=== PATIENT | male | born 1990 | race Caucasian/White ===

== ENCOUNTER 2020-03-02 14:48 | Emergency (ER) | payer BC ==
[2020-03-02 14:54] VITALS: BP 152/98; PULSE 78; TEMP 99.1; BMI 57.1
--- NOTE | 2020-03-02 15:00 | PDOC ---
History of Present Illness - General Chief Complaint: Redness To Affected Area Stated Complaint: RIGHT LEG REDNESS Time Seen by Provider: 03/02/20 15:00 - History of Present Illness Initial Comments: 03/02/20 15:04 Chief complaint: Redness and swelling right calf HPI: Redness and swelling right calf since yesterday. Today had fever and chills, myalgias, malaise. Similar episode once in the past, diagnosed with cellulitis, resolved with oral antibiotics and leg elevation. Review of systems: As noted above. No URI symptoms, sore throat, cough, urinary symptoms. Complete review was otherwise noncontributory Past medical history: Morbid obesity, one episode cellulitis, otherwise negative. No diabetes, cardiac or pulmonary disease, or other recurrent infections. 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 Otherwise noncontributory Physical exam: Alert and oriented, morbidly obese, but cheerful and cooperative. No acute distress Afebrile, 99.1, remainder of vital signs normal HEENT clear Neck supple without bruit mass or nodes Chest clear CV regular without murmur rub or gallop Abdomen benign Right calf shows erythema, mild induration, from the ankle to about prison to the knee. It is nontender and there is no edema Impression: Early cellulitis Plan: Oral antibiotics, close observation. Return to the hospital for admission if no improvement 24 to 48 hours. Past History - Medical History Allergies/Adverse Reactions: Allergies Allergy/AdvReac Type Severity Reaction Status Date / Time sulfamethoxazole Allergy Verified 03/02/20 14:56 [From Bactrim] trimethoprim [From Bactrim] Allergy Verified 03/02/20 14:56 Home Medications: Ambulatory Orders Cephalexin [Keflex] 500 mg PO QID #40 capsule 03/02/20 COPD: No - Psycho-Social/Smoking History Smoking History: Never smoked Have you smoked in the past 12 months: No - Substance Abuse Hx (Audit-C & DAST Scrn) How often the patient has a drink containing alcohol: Never Score: In Men: 4 or > Positive; In Women: 3 or > Positive: 0 Screen Result (Pos requires Nsg. Audit-10AR): Negative In the last yr the pt used illegal drug/Rx for NonMed reason: No Score: Yes response is considered Positive: 0 Screen Result (Positive result requires Nsg. DAST-10): Negative *Physical Exam - Vital Signs Last Vital Signs Temp Pulse Resp BP Pulse Ox 99.1 F 78 17 152/98 99 03/02/20 14:48 03/02/20 14:48 03/02/20 14:48 03/02/20 14:48 03/02/20 14:48 Medical Decision Making - Medical Decision Making 03/02/20 15:13 Prior episode of cellulitis in June was treated with Bactrim and Keflex. Immediately discontinued the Bactrim due to a skin reaction, but seem to respond to the Keflex. Keflex prescribed 500 mg 4 times daily. Rest and elevation of the leg. Timely follow-up in 24 hours recommended Discharge - Discharge Information Problems reviewed: Yes Clinical Impression/Diagnosis: Cellulitis of right leg Condition: Stable Disposition: HOME - Admission No - Additional Discharge Information Prescriptions: Cephalexin [Keflex] 500 mg PO QID #40 capsule - Follow up/Referral Referrals: Bull Carty MD [Staff Physician] - 24 hours - Patient Discharge Instructions Patient Printed Discharge Instructions: DI for Cellulitis -- Adult Additional Instructions: Rest and elevate the leg as much as possible. Limited standing and walking. Warm compresses. Antibiotics as directed. It is recommended to have the leg rechecked in 24 hours. If worse, hospitalization may be required. You may return to the ER for recheck, or contact your primary physician or Dr. Carty, infectious disease specialist to whom you are referred - Post Discharge Activity
[2020-03-02] MEDS ORDERED: CEPHALEXIN MONOHYDRATE 500 MG CAPSULE (UD) ONE (15:25)
[2020-03-02] MEDS ORDERED: CEPHALEXIN MONOHYDRATE 500 MG CAPSULE (UD) PO ONE (15:25)
--- OUTSIDE RECORDS SUMMARY | 2020-03-02 15:41 | XMS ---
:1990 Author Organization [facility] Support Name Relationship Address Phone [facility] Unavailable [phone] [facility] [place] [address] UNK Unavailable Unavailable Unavailable LONNY SINGH MOTHER [address] [place] [address] Re-disclosure Warning The records that you are about to access may contain information from federally- assisted alcohol or drug abuse programs. If such information is present, then the following federally mandated warning applies: This information has been disclosed to you from records protected by federal confidentiality rules (42 CFR part 2). The federal rules prohibit you from making any further disclosure of this information unless further disclosure is expressly permitted by the written consent of the person to whom it pertains or as otherwise permitted by 42 CFR part 2. A general authorization for the release of medical or other information is NOT sufficient for this purpose. The Federal rules restrict any use of the information to criminally investigate or prosecute any alcohol or drug abuse patient.The records that you are about to access may contain highly sensitive health information, the redisclosure of which is protected by Article 27-F of the [facility] Public Health law. If you continue you may haveaccess to information: Regarding HIV / AIDS; Provided by facilities licensed or operated by the [facility] Office of Mental Health; or Provided by the [facility] Office for People With Developmental Disabilities. If such information is present, then the following [facility] mandated warning applies: This information has been disclosed to you from confidential records which are protected by state law. State law prohibits you from making any further disclosure of this information without the specific written consent of the person to whom it pertains, or as otherwise permitted by law. Any unauthorized further disclosure in violation of state law may result in a fine or detention sentence or both. A general authorization for the release of medical or other information is NOT sufficient authorization for further disclosure. Insurance Providers Payer name Policy type Policy ID Covered Covered green party's Policy P chastity / Coverage green party ID relationship to [employer] Inf ormation type langley BC POS [id number] SP [id number] BC PPO [id number] SP [id number] SELF PAY SP INSURANCE
== END 2020-03-02 15:32 | disposition home or self-care (01) ==
LOC: FER 14:48
DX: L03.115 Cellulitis of right lower limb (principal)
CPT/HCPCS: 99284-25

== ENCOUNTER 2023-02-08 08:40 | Inpatient (IN) | payer BC, OTHER ==
[2023-02-08 09:33] VITALS: BMI 48.7
[2023-02-08] MEDS ORDERED: VANCOMYCIN PREMIX 1.75 GM 1,750 MG/350 ML PIGGYBACK IVPB ONE (09:46)
[2023-02-08 10:07] LABS: BASO % 0.2 % (0-2.0); EOS % 0.2 % (0-4.5); HEMATOCRIT 42.1 % (35.4-49); HEMOGLOBIN 14.1 GM/dL (11.7-16.9); LYMPH % 7.1 % (8-40); MCHC 33.6 g/dl (32.0-35.9); MEAN CELL VOLUME 83.2 fl (80-96); MEAN PLT VOLUME 8.6 fl (7.5-11.1); MONO % 4.8 % (3.8-10.2); NEUT % 87.7 % (42.8-82.8); PLATELET COUNT 265 10^3/uL (134-434); RBC 5.06 M/mm3 (4.00-5.60); RDW 13.6 % (11.9-15.9); WHITE BLOOD COUNT 16.2 K/mm3 (4.0-10.0)
[2023-02-08] MEDS ORDERED: hydrALAZINE HCL 10 MG TABLET PO ONE (10:15)
[2023-02-08 10:36] LABS: CHLORIDE 97 mmol/L (98-107); POTASSIUM 3.4 mmol/L (3.5-5.1); SODIUM 135 mmol/L (136-145)
[2023-02-08 10:38] LABS: CALCIUM 8.3 mg/dL (8.5-10.1)
[2023-02-08 10:39] LABS: ALBUMIN 3.4 g/dl (3.4-5.0); ANION GAP 7 MMOL/L (8-16); BLOOD UREA NITROGEN 9.2 mg/dL (7-18); CO2 31 mmol/L (21-32); GLUCOSE,RANDOM 122 mg/dL (74-106)
[2023-02-08 10:41] LABS: CREATININE 0.9 mg/dL (0.55-1.3); SGOT/AST 26 U/L (15-37); SGPT/ALT 42 U/L (13-61)
[2023-02-08 10:43] LABS: TOT PROT 8.1 g/dl (6.4-8.2)
[2023-02-08 10:45] LABS: ALK PHOS 95 U/L (45-117)
[2023-02-08 10:46] LABS: N-TERMINAL BNP 192.4 pg/ml (5-125)
[2023-02-08 10:48] LABS: ERYTHROCYTE SEDIMENTATION RATE 69 mm/hr (0-10)
[2023-02-08 11:04] LABS: BILIRUBIN,TOTAL 1.1 mg/dL (0.2-1)
[2023-02-08] MEDS ORDERED: ENOXAPARIN NA (PORCINE) 100 MG/1 ML DISP.SYRIN SQ ONE ×2 (11:09→11:21)
[2023-02-08] MEDS: DOXYCYCLINE INJECTION 100 MG in DEXTROSE 5%-WATER 100 ML IVPB SCH ×2 (15:51→21:40)
[2023-02-08] MEDS ORDERED: ACETAMINOPHEN 1000 MG/100 ML BAG IVPB PRN (22:28)
[2023-02-08] MEDS ORDERED: ENOXAPARIN NA (PORCINE) 40 MG/0.4 ML DISP.SYRIN SQ SCH (22:30)
[2023-02-09 07:42] VITALS: RESP 18
[2023-02-09 08:18] LABS: BASO % 0.3 % (0-2.0); EOS % 1.3 % (0-4.5); HEMATOCRIT 37.7 % (35.4-49); HEMOGLOBIN 13.4 GM/dL (11.7-16.9); LYMPH % 11.4 % (8-40); MCH 29.2 pg (25.7-33.7); MCHC 35.5 g/dl (32.0-35.9); MEAN CELL VOLUME 82.3 fl (80-96); MEAN PLT VOLUME 8.3 fl (7.5-11.1); MONO % 6.7 % (3.8-10.2); NEUT % 80.3 % (42.8-82.8); PLATELET COUNT 252 10^3/uL (134-434); RBC 4.58 M/mm3 (4.00-5.60); RDW 13.5 % (11.9-15.9); WHITE BLOOD COUNT 8.9 K/mm3 (4.0-10.0)
[2023-02-09 08:29] LABS: POTASSIUM 3.4 mmol/L (3.5-5.1)
[2023-02-09 08:45] LABS: ALBUMIN 3.1 g/dl (3.4-5.0); BLOOD UREA NITROGEN 11.4 mg/dL (7-18); CALCIUM 8.3 mg/dL (8.5-10.1); MAGNESIUM 2.3 mg/dL (1.8-2.4)
[2023-02-09 08:47] LABS: PHOSPHOROUS 2.2 mg/dL (2.5-4.9)
[2023-02-09 08:49] LABS: CREATININE 0.7 mg/dL (0.55-1.3); TOT PROT 7.5 g/dl (6.4-8.2)
[2023-02-09 08:50] LABS: BILIRUBIN,TOTAL 0.7 mg/dL (0.2-1)
[2023-02-09] MEDS: ENOXAPARIN NA (PORCINE) 40 MG/0.4 ML DISP.SYRIN SQ SCH ×2 (09:27→21:43)
[2023-02-09] MEDS: amLODIPine BESYLATE 10 MG TABLET (FP) PO SCH (09:28)
[2023-02-09] MEDS: DOXYCYCLINE INJECTION 100 MG in DEXTROSE 5%-WATER 100 ML IVPB SCH ×2 (09:28→21:43)
[2023-02-09] MEDS ORDERED: ENOXAPARIN NA (PORCINE) 40 MG/0.4 ML DISP.SYRIN SQ SCH (10:00)
[2023-02-09] MEDS ORDERED: amLODIPine BESYLATE 5 MG TABLET (FP) PO SCH (10:00)
[2023-02-09] MEDS ORDERED: POTASSIUM CHLORIDE ORAL LIQUID 20 MEQ/15 ML PO ONE (11:30)
[2023-02-09] MEDS: BACITRACIN ZINC 15 GM TUBE TOPICAL OINTMENT TP SCH (12:17)
[2023-02-10] MEDS: DOXYCYCLINE INJECTION 100 MG in DEXTROSE 5%-WATER 100 ML IVPB SCH (10:03)
[2023-02-10] MEDS: amLODIPine BESYLATE 10 MG TABLET (FP) PO SCH (10:05)
[2023-02-10] MEDS: ENOXAPARIN NA (PORCINE) 40 MG/0.4 ML DISP.SYRIN SQ SCH (10:05)
[2023-02-10] MEDS: BACITRACIN ZINC 15 GM TUBE TOPICAL OINTMENT TP SCH (10:06)
[2023-02-10 10:21] LABS: BASO % 0.4 % (0-2.0); EOS % 2.2 % (0-4.5); HEMATOCRIT 38.9 % (35.4-49); HEMOGLOBIN 13.5 GM/dL (11.7-16.9); LYMPH % 16.7 % (8-40); MCH 28.5 pg (25.7-33.7); MCHC 34.7 g/dl (32.0-35.9); MEAN PLT VOLUME 8.4 fl (7.5-11.1); MONO % 7.3 % (3.8-10.2); NEUT % 73.4 % (42.8-82.8); PLATELET COUNT 270 10^3/uL (134-434); RBC 4.74 M/mm3 (4.00-5.60); RDW 13.6 % (11.9-15.9); WHITE BLOOD COUNT 5.9 K/mm3 (4.0-10.0)
[2023-02-10 10:37] LABS: POTASSIUM 3.2 mmol/L (3.5-5.1)
[2023-02-10 10:39] LABS: BLOOD UREA NITROGEN 10.8 mg/dL (7-18); CALCIUM 8.3 mg/dL (8.5-10.1)
[2023-02-10 10:41] LABS: ALBUMIN 2.9 g/dl (3.4-5.0)
[2023-02-10 10:42] LABS: CREATININE 0.7 mg/dL (0.55-1.3)
[2023-02-10 10:44] LABS: BILIRUBIN,TOTAL 0.4 mg/dL (0.2-1); TOT PROT 7.3 g/dl (6.4-8.2)
[2023-02-10] MEDS ORDERED: POTASSIUM CHLORIDE ORAL LIQUID 20 MEQ/15 ML PO ONE (12:15)
[2023-02-10 12:55] VITALS: BP 156/91; PULSE 84; TEMP 98.5
[2023-02-10] MEDS ORDERED: DOXYCYCLINE INJECTION 100 MG in DEXTROSE 5%-WATER 100 ML IVPB ONE (16:47)
== END 2023-02-10 19:14 | disposition home or self-care (01) | DRG 383 ==
LOC: JER 08:40 → JERBED 12:56 → J8W 15:29
PROVIDERS: ADMIT Internal Medicine; ATTEND Nurse Practitioner Family
DX: L03.116 Cellulitis of left lower limb (principal); Z68.42 Body mass index [BMI] 45.0-49.9, adult; I10 Essential (primary) hypertension; E66.01 Morbid (severe) obesity due to excess calories; B35.1 Tinea unguium
CPT/HCPCS: 36415; 71045-TC-FY; 71275-TC; 73590-TC-LT-FY; 80053; 80307; 82550; 82553; 83036; 83735; 83880; 84100; 84484; 85025; 85379; 85651; 86140; 87040; 93005; 93010; 93970-TC; 99285-25; J3370; Q9967